=== PATIENT | female | born 1995 | race African-American/Black ===

== ENCOUNTER 2017-02-15 19:29 | Emergency (ER) | payer MEDICAID, OTHER ==
[~2017-02-15] VITALS: Ht 162.6 cm; Wt 75.0 kg
[2017-02-15 19:32] VITALS: BP 138/80; PULSE 113; RESP 16; TEMP 100.2; O2SAT 99
--- NOTE | 2017-02-15 23:40 | PD ---
HPI Chief Complaint: Bite or Sting Time Seen by Provider: 23:05 Travel History International Travel<30 days: No Contact w/Intl Traveler<30days: No Traveled to known affect area: No History of Present Illness HPI The 21-year-old young woman presents emergent from of left leg soft tissue infection. Started past couple days. Worse today. Spontaneously draining. No history of previous similar symptoms. No fevers or chills. No other complaints. History Past Medical History Medical History: Denies Significant Hx Tetanus Vaccination: < 5 Years LMP: 02/15/2017 Past Surgical History Surgical History: No Previous Surgery Social History Alcohol Use: No Tobacco Use: No Allergies-Medications (Allergen,Severity, Reaction): Coded Allergies: No Known Allergies (Unverified , 02/15/17) Reported Meds & Prescriptions Reported Meds & Active Scripts Active No Active Prescriptions or Reported Medications Review of Systems Except as stated in HPI: all other systems reviewed are Neg Physical Exam Narrative GENERAL: Well-appearing 21-year-old young woman, no acute distress. SKIN: Warm and dry. CARDIOVASCULAR: Warm and well perfused. RESPIRATORY: Normal rate and effort. MUSCULOSKELETAL: In the left leg is no area of induration and erythema redness with some spontaneous drainage from the central area of the wound. Total about 4 x 4 centimeters or so of erythema and induration. NEUROLOGICAL: Awake and alert. No gross deficits. Data Data Last Documented VS Vital Signs Date Time Temp Pulse Resp B/P (MAP) Pulse Ox O2 Delivery O2 Flow Rate FiO2 02/15/17 19:32 100.2 113 16 138/80 (99) 99 Room Air MDM Medical Decision Making Medical Screen Exam Complete: Yes Emergency Medical Condition: Yes Differential Diagnosis Abscess, sialitis, other Narrative Course Medical decision making 21-year-old abscess and sialitis in the left leg. Incision and drainage at the bedside. Minimal additional purulent output. Diagnosis Primary Impression: Abscess of left leg Additional Instructions: Take Bactrim as prescribed. Follow-up with your primary doctor in the next 2-4 days. Return to the emergency department for any new or worsening symptoms. Med/Other Pt SpecificInfo: Prescription(s) given Scripts Sulfamethoxazole-Trimethoprim (Bactrim DS) 800-160 Mg Tab 1 TAB PO BID for Infection, #14 TAB 0 Refills Prov: Dereck Stewart MD 02/15/17 Disposition: 01 DISCHARGE HOME Condition: Stable Dereck Stewart MD Feb 15, 2017 23:39
[2017-02-15] MEDS ORDERED: BACT800T5 PO (23:41)
[2017-02-15] MEDS ORDERED: SULFAMETHOXAZOLE-TRIMETHOPRIM DS 800-160 MG TAB PO ONE (23:45)
[2017-02-15] MEDS ORDERED: IBUPROFEN 600 MG TAB PO ONE (23:45)
== END 2017-02-16 00:02 | disposition home or self-care (01) ==
LOC: NEPC 19:29
DX: L02.416 Cutaneous abscess of left lower limb (principal); K11.20 Sialoadenitis, unspecified
CPT/HCPCS: 99283

== ENCOUNTER 2017-03-09 10:21 | Emergency (ER) | payer MEDICAID, OTHER ==
[~2017-03-09] VITALS: Ht 160 cm; Wt 73.0 kg
[~2017-03-09 10:21] MED LIST: BACT800T5 PO
[2017-03-09 10:23] VITALS: BP 123/70; PULSE 87; RESP 16; TEMP 98.5; O2SAT 100
[2017-03-09] MEDS ORDERED: AZITHROMYCIN 250 MG TAB PO ONE (12:00)
[2017-03-09] MEDS ORDERED: LIDOCAINE HCL 1% 50 ML VIAL XX ONE (12:00)
[2017-03-09] MEDS ORDERED: cefTRIAXone 250 MG VIAL IM ONE (12:00)
[2017-03-09] MEDS ORDERED: MORPHINE SULFATE 4 MG/ML INJ IM ONE (12:00)
[2017-03-09] MEDS ORDERED: PERC5TAB12 PO (12:03)
[2017-03-09] MEDS ORDERED: ACYC400T PO (12:03)
--- NOTE | 2017-03-09 12:03 | PD ---
HPI . 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 The pain has been getting progressively worse over the course the last week. She now rates the pain at 9/10. She states that the pain is associated with little bumps. She has not noted any similar bumps on a sexual partner. She denies any previous similar history. PFSH Past Medical History Medical History: Denies Significant Hx Diminished Hearing: No Immunizations Current: Yes Influenza Vaccination: No ?: Unknown Past Surgical History Surgical History: No Previous Surgery Social History Alcohol Use: No Tobacco Use: No Substance Use: No Allergies-Medications (Allergen,Severity, Reaction): Coded Allergies: No Known Allergies (Unverified , 03/09/17) Reported Meds & Prescriptions Reported Meds & Active Scripts Active Percocet (Oxycodone-Acetaminophen) 5-325 mg Tab 1 Tab PO Q4H PRN Acyclovir 400 Mg Tab 400 Mg PO TID 10 Days Review of Systems Except as stated in HPI: all other systems reviewed are Neg Genitourinary: Positive: Dysuria, Discharge, Other, No: Vaginal Bleeding Physical Exam Narrative GENERAL: Awake and alert and in no distress. SKIN: Warm and dry. HEAD: Normocephalic/atraumatic. EYES: Pupils are equal. Extraocular movements are intact. NECK: Supple. Full range of motion. CARDIOVASCULAR: Regular rate. RESPIRATORY: Nonlabored. : Scattered vesicular lesions in various stages of healing on the external genitalia. She is unable to tolerate a bimanual examination. I have obtained a wet prep and GC/chlamydial DNA probes by placing Q-tips in her vagina. MUSCULOSKELETAL: Atraumatic. NEUROLOGICAL: Nonfocal. PSYCHIATRIC: Appropriate mood and affect. Data Data Last Documented VS Vital Signs Date Time Temp Pulse Resp B/P (MAP) Pulse Ox O2 Delivery O2 Flow Rate FiO2 03/09/17 10:23 98.5 87 16 123/70 (87) 100 Room Air Orders Orders Gc And Chlamydia Pcr (03/09/17 11:37) Wet Prep Profile (03/09/17 11:37) Urinalysis - C+S If Indicated (03/09/17 11:37) Ed Urine Pregnancytest Poc (03/09/17 11:37) Herpes Simplex Virus Culture (03/09/17 11:50) Morphine Inj (Morphine Inj) (03/09/17 12:00) Ceftriaxone Inj (Rocephin Inj) (03/09/17 12:00) Lidocaine 1% Inj (50 Ml) (Xylocaine 1% I (03/09/17 12:00) Azithromycin (Zithromax) (03/09/17 12:00) Lidocaine 2% Jelly (Xylocaine 2% Jelly) (03/09/17 12:30) Lidocaine 2% Jelly (Xylocaine 2% Jelly) (03/09/17 13:00) Labs Laboratory Tests Test 03/09/17 11:45 03/09/17 11:50 Urine Color YELLOW Urine Turbidity CLEAR Urine pH 6.0 Urine Specific [place] 1.028 Urine Protein NEG mg/dL Urine Glucose (UA) NEG mg/dL Urine Ketones NEG mg/dL Urine Occult Blood NEG Urine Nitrite NEG Urine Bilirubin NEG Urine Urobilinogen 2.0 MG/DL Urine Leukocyte Esterase NEG Urine RBC 1 /hpf Urine WBC LESS THAN 1 /hpf Urine Mucus FEW /lpf Microscopic Urinalysis Comment CATH-CULT NOT IND Clue Cells (Wet Prep) NONE SEEN Vaginal Trichomonas (Wet Prep) NONE SEEN Vaginal Yeast (Wet Prep) NONE SEEN MDM Medical Decision Making Medical Screen Exam Complete: Yes Emergency Medical Condition: Yes Differential Diagnosis Differential diagnosis of vaginal pain includes but is not limited to yeast infection, herpes, local trauma, UTI Narrative Course This patient presents with signs and symptoms classic for genital herpes. Unfortunately, she has had her symptoms for a week. I will cover her for possible co-infections of gonorrhea and chlamydia with Rocephin and Zithromax. She will be discharged on acyclovir and Percocet. She will be instructed to follow up at [facility]. UA>>neg preg neg wet prep neg Diagnosis Primary Impression: Primary genital herpes simplex infection Referrals: Prachi Geiger 3 days at [facility] Patient Instructions: General Instructions, Genital Herpes Simplex (DC), Narcotic given in the ED Med/Other Pt SpecificInfo: Prescription(s) given Scripts Lidocaine Topical (Lidocaine Topical) 2 % Jel 1 APPLIC TOPICAL QID for Pain Management, #15 GM 0 Refills Prov: Zoraida Delvalle MD 03/09/17 Oxycodone-Acetaminophen (Percocet) 5-325 mg Tab 1 TAB PO Q4H Y for PAIN, #12 TAB 0 Refills Prov: Zoraida Delvalle MD 03/09/17 Acyclovir (Acyclovir) 400 Mg Tab 400 MG PO TID for Mgmt Viral Infection for 10 Days, TAB 0 Refills Prov: Zoraida Delvalle MD 03/09/17 Disposition: 01 DISCHARGE HOME Condition: Stable Zoraida Delvalle MD Mar 09, 2017 12:03
[2017-03-09] MEDS ORDERED: LIDOCAINE 2% JELLY 30 ML TUBE TOPICAL ONE (12:30)
[2017-03-09 12:36] LABS: BLOOD, URINE NEG (NEG); COMMENT (UR) CATH-CULT NOT IND; CULTURE IF INDICATED CATH CULTURE NOT IND; GLUCOSE,URINE NEG (NEG); KETONE, URINE NEG (NEG); MUCUS URINE FEW /lpf (OCC); NITRITE,URINE NEG (NEG); URINE COLOR YELLOW (YELLW/STRAW)
[2017-03-09] MEDS ORDERED: LIDO2GEL11 TOPICAL (12:53)
[2017-03-09] MEDS ORDERED: LIDOCAINE 2% JELLY 5 ML TUBE TOPICAL ONE (13:00)
[2017-03-09 14:27] LABS: CHLAMYDIA PCR NOT DETECTED (NOT DETECT); NEISSERIA PCR DETECTED (NOT DETECT)
== END 2017-03-09 13:07 | disposition home or self-care (01) ==
LOC: NEPD 10:21
DX: A60.00 Herpesviral infection of urogenital system, unspecified (principal); Z79.899 Other long term (current) drug therapy
CPT/HCPCS: 81001; 84703; 87210; 87255; 87491; 87591; 96372; 99284; J0696; J2270